=== PATIENT | male | born 1945 | race Caucasian/White ===

== ENCOUNTER → 2020-12-27 | Outpatient (CLI) | payer BC, OTHER ==
[~2020-12-27] MED LIST: ASPIRIN325 PO; FISH OIL 1,2001 EAC4 PO; MEN 50 PLUS MU1 EACH PO; VITAMIN D3125 MC1 PO
[2020-12-27 09:11] LABS: HEMATOCRIT 42.3 % (42.0-52.0); HEMOGLOBIN 14.2 gm/dL (14.0-18.0); MCHC 33.6 g/dL (28.0-37.0); MCV 95.2 fL (80.0-100.0); RBC 4.44 mil/uL (4.50-6.00); RDW 12.8 % (10.5-14.5); WBC 3.1 thou/uL (4.0-11.0)
[2020-12-27 09:18] LABS: URINE BILIRUBIN NEGATIVE (Negative); URINE BLOOD NEGATIVE (Negative); URINE CLARITY CLEAR; URINE COLOR YELLOW; URINE GLUCOSE-RANDOM* NEGATIVE (Negative); URINE KETONES NEGATIVE (Negative); URINE LEUKOCYTES-REFLEX NEGATIVE (Negative); URINE NITRITE-REFLEX NEGATIVE (Negative); URINE PROTEIN (DIPSTICK) NEGATIVE (Negative); URINE SPECIFIC GRAVITY >= 1.030 (1.005-1.035); URINE UROBILINOGEN 0.2 E.U./dl (0.2-1.0)
[2020-12-27 09:28] LABS: INR 1.1; PROTIME 11.4 Seconds (9.3-11.4)
[2020-12-27 09:38] LABS: CALCIUM 9.2 mg/dL (8.5-10.1); POTASSIUM 3.9 mmol/L (3.5-5.1)
== END ==
LOC: LAB 09:00
PROVIDERS: ATTEND Orthopaedic Surgery
DX: M17.12 Unilateral primary osteoarthritis, left knee (principal); Z98.890 Other specified postprocedural states; Z96.652 Presence of left artificial knee joint

== ENCOUNTER 2021-01-10 09:04 | Observation (INO) | payer BC, OTHER ==
[2020-12-27 09:11] LABS: HEMATOCRIT 42.3 % (42.0-52.0); HEMOGLOBIN 14.2 gm/dL (14.0-18.0); MCHC 33.6 g/dL (28.0-37.0); MCV 95.2 fL (80.0-100.0); RBC 4.44 mil/uL (4.50-6.00); RDW 12.8 % (10.5-14.5); WBC 3.1 thou/uL (4.0-11.0)
[2020-12-27 09:18] LABS: URINE BILIRUBIN NEGATIVE (Negative); URINE BLOOD NEGATIVE (Negative); URINE CLARITY CLEAR; URINE COLOR YELLOW; URINE GLUCOSE-RANDOM* NEGATIVE (Negative); URINE KETONES NEGATIVE (Negative); URINE LEUKOCYTES-REFLEX NEGATIVE (Negative); URINE NITRITE-REFLEX NEGATIVE (Negative); URINE PROTEIN (DIPSTICK) NEGATIVE (Negative); URINE SPECIFIC GRAVITY >= 1.030 (1.005-1.035); URINE UROBILINOGEN 0.2 E.U./dl (0.2-1.0)
[2020-12-27 09:28] LABS: INR 1.1; PROTIME 11.4 Seconds (9.3-11.4)
[2020-12-27 09:38] LABS: CALCIUM 9.2 mg/dL (8.5-10.1); POTASSIUM 3.9 mmol/L (3.5-5.1)
[~2021-01-10] VITALS: Ht 177.8 cm; Wt 84.6 kg
[2021-01-10 10:31] VITALS: BP 136/68
[2021-01-10 15:50] VITALS: BP 103/59
--- NOTE | 2021-01-10 18:30 | NUR ---
PT RECEIVED FROM REC RM AT 1500 ALERT AND IN NO ACUTE DISTRESS. PHYSICAL THERAPIST HERE AND WORKED W/ PT SOME. REQUESTED PAIN MED WHICH HELPED W/ LT KNEE PAIN. DSNG DRY AND POLAR PACK IN PLACE TEDS AND SCD'D. ATE WELL. USING URINAL AT BEDSIDE.
[2021-01-10 20:30] VITALS: BP 95/48
[2021-01-11 05:34] LABS: HEMATOCRIT 34.1 % (42.0-52.0); HEMOGLOBIN 11.7 gm/dL (14.0-18.0); MCH 32.7 pg (26.0-34.0); MCHC 34.4 g/dL (28.0-37.0); RBC 3.59 mil/uL (4.50-6.00); RDW 12.6 % (10.5-14.5); WBC 10.1 thou/uL (4.0-11.0)
--- NOTE | 2021-01-11 07:38 | NUR ---
RECIEVED CARE OF THIS PATIENT AT 1900. PATIENT ALERT AND ORIENTED X4. HAS OSMANI DRESSING ON L LOWER EXT. HAS TEDS AND SCD'S ALSO. C/O PAIN X1. MED GIVEN. SLEPT OFF AND ON DURING NIGHT.
[2021-01-11 08:30] VITALS: BP 110/55
--- NOTE | 2021-01-11 09:10 | NUR ---
ASSESSMENT: CM REVIEWED CHART AND SPOKE WITH PT. PT IS ALERT AND ORIENTED X4. PT IS S/P L TKR. PT REPORTS LIVING IN A HOUSE WITH HIS . PT STATES ABOUT 4 STEPS WITH HANDRAILS TO ENTER AND NO STEPS ONCE INSIDE. PT STATES HE IS NORMALLY INDEPENDENT WITH ADLS AND AMBULATION AND HAS NO DME. PHYSICAL THERAPY WORKED WITH PATIENT AND RECOMMENDING A WALKER. CM DISCUSSED WITH PATIENT AND HAS NO PREFERENCE OF PROVIDER. CM NOTIFIED [employer] WITH [employer] WHO WILL RUN INSURANCE AND BRING WALKER TO PATIENTS ROOM. PT REPORTS HAVING OUTPATIENT THERAPY ARRANGED AT [facility] TO BEGIN TOMORROW. CM DISCUSSED ROLE. PT DOES NOT ANTICIPATE HAVING ANY NEEDS OTHER THEN THE WALKER. CM WILL CONTINUE TO FOLLOW TO ASSIST NEEDED. PT WILL WORK WITH THERAPY AND POSSIBLE DISCHARGE HOME.
[2021-01-11 09:12] VITALS: BP 110/55
[2021-01-11 10:43] VITALS: BP 110/55
--- NOTE | 2021-01-11 14:07 | NUR ---
PT A&OX4, VSS, PAIN IN LEFT KNEE. PATIENT WORKED WITH OT AND PT X 2 TODAY. PATIENT WALKED WITH WALKER. PATIENT HAS PERSONAL WALKER. PAIN IN LEFT KNEE CONTROLLED. AT BEDSIDE. PT DISCHARGED HOME AND WILL HAVE OUTPATIENT THERAPY. PATIENT IV REMOVED. ALL BELONGINGS WITH PATIENT. NO SIGNS OF DISTRESS. WILL CONTINUE TO MONITOR.
--- NOTE | 2021-01-13 14:01 | O ---
[facility] [place] [address] OPERATIVE REPORT Name: JALEN SCHAFER Room #: 442-P [facility] Andrés Santana#: [id number] Admission: 01/10/21 Attend Phys: Omari Rodriguez MD Discharge: 01/11/21 Date of : 47 Report #: [id number] THIS REPORT FOR: cc: Jordan Canela MD, Herbert M. MD Abraham,Omari Mina MD ~ DATE OF SERVICE: 01/10/2021 PREOPERATIVE DIAGNOSIS: Left knee osteoarthritis. POSTOPERATIVE DIAGNOSIS: Left knee osteoarthritis. PROCEDURE: Left total knee arthroplasty using Navio robotic clinic assistant. SURGEON: Omari Rodriguez MD. DATA SECURITY COORDINATOR: Daily Estes PA-C. INDICATIONS FOR DATA SECURITY COORDINATOR: Throughout the case, extensive retraction and manipulation of the knee was required. This was afforded to me by my clinic assistant. ANESTHESIA: LMA with an adductor canal block. IMPLANTS: [employer] Nephew size 7 Journey II BCS cobalt chrome femur, size 5 tibia, size 9 polyethylene and size 38 patella. TOURNIQUET TIME: 58 minutes. ESTIMATED BLOOD LOSS: 25 mL. COMPLICATIONS: None. SPECIMENS: None. CONDITION UPON LEAVING THE OPERATING ROOM: Stable. INDICATIONS FOR PROCEDURE: The patient is a 75-year-old gentleman with severe left knee osteoarthritis. He had failed conservative measures for this and after discussion with him, he elected for left total knee arthroplasty. DESCRIPTION OF PROCEDURE: Risks, benefits, alternatives, complications were discussed in detail with the patient including but not limited to risk of anesthesia, risk of damage to nerves, arteries, blood vessels, risk for infection, bleeding, risk for continued knee pain, need for reoperation. Informed consent was obtained from the patient. Left knee was appropriately [address] [address] OPERATIVE REPORT Name: GILMARJALEN Room #: 442-P [facility] Andrés Santana#: [id number] Admission: 01/10/21 Attend Phys: Omari Rodriguez MD Discharge: 01/11/21 Date of : 47 Report #: [id number] marked in the preoperative holding area. IV Ancef was given for preoperative antibiotics. Adductor canal block was placed by anesthesia. He was brought to the operating room and placed in supine position on operating room table. LMA anesthesia was induced without complication. Tourniquet was placed on the left thigh. Left lower extremity was prepped and draped in normal sterile fashion. Timeout was performed properly identifying the patient and procedure as well as the instrumentation and implants. All in the operating room were in agreement. Left lower extremity was exsanguinated, tourniquet was inflated. Tourniquet time was 58 minutes. Standard midline approach to knee was made with 10 blade through the skin. Dissection was taken down sharply to the fascia and deep flaps were developed medially and laterally. Fresh 10 blade was used to make a medial parapatellar arthrotomy and the knee was inspected. There was severe tricompartmental osteoarthritis. ACL and PCL were removed sharply. Reference pins were placed in the femur and the tibia. The knee was then digitally mapped using the WiMi5 robotic system. Intraoperative plan was made and we sized the size 7 femur, the size 5 tibia and a 10 spacer. After acceptance of the intraoperative plan, the distal femoral cut was made with a Navio bur. Distal femoral cutting block was pinned in place and chamfer cuts were made. Attention was then turned to the tibia. Remainder of the menisci removed with Bovie cautery. Tibial resection guide was pinned in place using the Navio for placement and tibial resection was made. Flexion and extension gaps were then checked and found to have good balance in flexion and extension both medially and laterally. Tibia was sized, found to be a size 5. A size 5 tibial trial was placed, pinned and punched. A size 7 femoral trial was placed and box cut was made. This was then trialed with a size 9 polyethylene and a size 9 polyethylene demonstrated 1-1/2 millimeter of laxity medially and laterally throughout range of motion of the knee. A 9 mm of bone was resected from the posterior surface of the patella and a size 38 patellar trial button was placed. Knee was taken through range of motion, found to be stable, found to have good patellar tracking. Trial components were removed. Bony ends were thoroughly irrigated with normal saline. A final size 9 polyethylene was placed. A gram of vancomycin was placed deep in the joint. Fascia was closed with 0 Vicryl, skin was closed with 2-0 Vicryl, 3-0 Monocryl. Dermabond and a OSMANI dressing was applied. The patient tolerated this procedure well and went to recovery room under care of anesthesia postoperatively. <ELECTRONICALLY SIGNED> By: Omari Rodriguez MD 01/13/21 1401 [id number] Omari Rodriguez MD /nt
== END 2021-01-11 17:18 | disposition home or self-care (01) ==
LOC: OR 09:04 → TBA 09:11 → OR 10:12 → 4S 16:06 → OR 16:07 → 4S 01-11 17:18
PROVIDERS: ADMIT Orthopaedic Surgery; ATTEND Orthopaedic Surgery
DX: M17.12 Unilateral primary osteoarthritis, left knee (principal); Z87.891 Personal history of nicotine dependence; Z79.899 Other long term (current) drug therapy
CPT/HCPCS: 50010; 50101; 50415; 50954; 51130; 51225; 51320; 52001; 52282; 53000; 53078; 54118; 56527; 56528; 57095; 57103; 57110; 57127; 57180; 58239; 62110; 62900; 64042; 70005